=== PATIENT | male | born 2000 | race Caucasian/White ===

== ENCOUNTER 2022-10-18 22:10 | Emergency (ER) | payer OTHER, SELFPAY ==
[2022-10-18] MEDS ORDERED: Ondansetron PF 4 MG/2 ML Vial ONE (22:30)
[2022-10-18 22:31] LABS: #Basophils 0.1 thou/uL (0.0-0.2); #Eosinphils 0.2 thou/uL (0.0-0.7); #Lymphocytes 3.5 thou/uL (1.20-3.40); #Monocytes 0.7 thou/uL (0.11-0.59); #Neutrophils 4.4 thou/uL (1.40-6.50); %Basophils 1.1 % (0.0-1.0); %Eosinophils 2.1 % (0.0-10.0); %Lymphocytes 39.5 % (21.0-51.0); %Monocytes 7.8 % (0.0-10.0); %Neutrophils 49.5 % (42.0-75.0); Hemoglobin 14.6 g/dL (14.0-18.0); Mean Corpuscular HGB CONC 34.7 g/dL (32.0-36.0); Mean Corpuscular Volume 92.2 fl (78.0-98.0); Mean Platelet Volume 6.5 fL (7.4-10.4); Platelet Count 406 10x3/uL (130-400); RBC Distribution Width 11.5 % (11.5-14.5); Red Blood Cell (RBC) Count 4.56 mill/uL (4.70-6.10); White Blood Cell (WBC) Count 8.8 10x3/uL (4.8-10.8)
[2022-10-18 22:46] LABS: Anion Gap 14 mmol/L (10-20); BUN (Urea Nitrogen) 14 mg/dL (8.9-20.6); Calc. Creatinine Clearance 0 mL/min (70-130); Carbon Dioxide 25 mmol/L (22-29); Chloride 108 mmol/L (98-107); Estimated GFR 83; Glucose 98 mg/dL (70-105); Potassium 3.6 mmol/L (3.5-5.1); Sodium 143 mmol/L (136-145)
[2022-10-18] MEDS ORDERED: CEFAZOLIN 1 GM VIAL ONE (22:50)
[2022-10-18] MEDS ORDERED: Sodium Chloride 0.9% 100 ML ONE (22:51)
[2022-10-18] MEDS ORDERED: HYDROmorphone 0.5 MG/0.5 ML SYRINGE ONE (22:53)
[2022-10-18] MEDS ORDERED: Boostrix 0.5 ML (Tdap) VIAL (>/=7 yrs of age) ONE (23:09)
== END 2022-10-18 23:25 | disposition home or self-care (01) ==
LOC: BURERS 22:10
DX: S62.634A Displaced fracture of distal phalanx of right ring finger, initial encounter for closed fracture (principal); S62.636A Displaced fracture of distal phalanx of right little finger, initial encounter for closed fracture; S61.411A Laceration without foreign body of right hand, initial encounter; Z23 Encounter for immunization; W23.0XXA Caught, crushed, jammed, or pinched between moving objects, initial encounter
CPT/HCPCS: 80048; 85025; 90471; 90715; 96365; 96375; J0690; J1170; J2405; J3490